=== PATIENT | male | born 1990 | race Caucasian/White ===

== ENCOUNTER 2020-09-25 14:46 | Emergency (ER) | payer SELFPAY ==
[2020-09-25 14:55] VITALS: BP 158/86
[2020-09-25] MEDS ORDERED: DIPH/PERTUSS(ACELL)/TETANUS VAC/PF 0.5 ML SYR (>=10YO) IM ONE ×2 (14:56→17:14)
[2020-09-25] MEDS ORDERED: CEPHALEXIN 500 MG CAPSULE PO ONE ×2 (14:56→17:15)
--- NOTE | 2020-09-25 14:56 | ER Document Report ---
ED Medical Screen (RME) - General Chief Complaint: Laceration Stated Complaint: FINGER LACERATION Time Seen by Provider: 09/25/20 14:52 Primary Care Provider: TRISTON WHITNEY [Primary Care Provider] - Follow up as needed Mode of Arrival: Ambulatory Information source: Patient Notes: 30-year-old male presented to ED for crush injury with laceration to the left index finger. He caught his finger between the brake caliber and the edge of the rim crushing his finger. He did rip his fingernail out and it is partially hanging on. He does have a minimal laceration. We will get x-rays and give him a tetanus immunization. He took 800 mg of ibuprofen about hours ago when the incident happened. He states he came to the emergency room because he cannot get the bleeding to stop. It is pretty much stopped now but the finger will need some work to get the nail back in the bed where it belongs. I have greeted and performed a rapid initial assessment of this patient. A comprehensive ED assessment and evaluation of the patient, analysis of test results and completion of medical decision making process will be conducted by an additional ED providers. Doctor's Discharge - Discharge Referrals: TRISTON WHITNEY [Primary Care Provider] - Follow up as needed
--- NOTE | 2020-09-25 15:17 | RADIOLOGY REPORT (SQ) ---
EXAM DESCRIPTION: FINGER LEFT IMAGES COMPLETED DATE/TIME: 09/25/2020 3:08 pm REASON FOR STUDY: Crush injury with laceration COMPARISON: None. NUMBER OF VIEWS: Three views. TECHNIQUE: AP, lateral, and oblique images acquired of the left second finger. LIMITATIONS: None. FINDINGS: MINERALIZATION: Normal. BONES: Avulsion type injury of the distal phalanx of the 2nd digit. SOFT TISSUES: Mild associated soft tissue irregularity. OTHER: No other significant finding. IMPRESSION: Avulsion type injury of the distal tuft of the 2nd digit. Associated soft tissue injury . TECHNICAL DOCUMENTATION: JOB ID: [id number] [employer]- All Rights Reserved Reading location - IP/workstation name: [email or web address]
--- NOTE | 2020-09-25 17:06 | ER Document Report ---
ED General - General Chief Complaint: Laceration Stated Complaint: FINGER LACERATION Time Seen by Provider: 09/25/20 14:52 Primary Care Provider: CHELO,TRISTON [NO LOCAL MD] - Follow up as needed Mode of Arrival: Ambulatory - [facility] Notes: 30-year-old male presents with injury to his left index finger. Patient states that he was changing a tire, he accidentally got his finger stuck in one of the holes on the rim, and the break crushed his hand. He had a lot of bleeding initially. He denies loss of sensation or motor function to his finger. Unsure of last tetanus. - Related Data Allergies/Adverse Reactions: No Known Allergies Allergy (Unverified 09/25/20 17:48) Past Medical History - General Information source: Patient - Social History Smoking Status: Unknown if Ever Smoked Family History: Reviewed & Not Pertinent Review of Systems - Review of Systems Constitutional: No symptoms reported EENT: No symptoms reported Cardiovascular: No symptoms reported Respiratory: No symptoms reported Gastrointestinal: No symptoms reported Genitourinary: No symptoms reported Male Genitourinary: No symptoms reported Musculoskeletal: Joint pain Skin: Other - Wound Hematologic/Lymphatic: No symptoms reported Neurological/Psychological: denies: Numbness Physical Exam - Vital signs Vitals: Temp Pulse Resp BP Pulse Ox 97.9 F 70 16 158/86 H 99 09/25/20 14:54 09/25/20 14:54 09/25/20 14:54 09/25/20 14:54 09/25/20 14:54 - General General appearance: Appears well, Alert In distress: None - HEENT Head: Normocephalic, Atraumatic Pupils: PERRL - Respiratory Respiratory status: No respiratory distress - Cardiovascular Normal capillary refill: Yes - Left index finger - Abdominal Inspection: No: Obese - Extremities Notes: There is a nail avulsion to the left index finger, able to see entirety of base of nail, associated superficial skin laceration. No injury to finger pad. Able to fully flex and extend at MCP, PIP and DIP of left index finger, able to make fist - Neurological Neuro grossly intact: Yes Notes: Motor and sensory intact to left index finger and left hand - Psychological Associated symptoms: Normal affect - Skin Skin Temperature: Warm Course - Re-evaluation Re-evalutation: 30-year-old male presents with injury to his left index finger, caught while changing a tire. There is a complete nail avulsion to the left index finger with associated superficial laceration. The finger is neurovascularly intact, able to fully flex and extend had all joints. Through the triage process he had an x-ray performed which shows a distal tuft fracture. Tetanus was ordered. Discussed with patient will reduce nailbed and repair wound. Dose of Keflex ordered. 09/25/20 18:10 Nailbed was repaired with 2 sutures and Dermabond. An aluminum splint was ordered. Discussed wound care with patient. Rx Keflex. Strict return precautions given, patient stable at time of discharge. - Vital Signs Vital signs: Temp Pulse Resp BP Pulse Ox 97.9 F 70 16 158/86 H 99 09/25/20 14:54 09/25/20 14:54 09/25/20 14:54 09/25/20 14:54 09/25/20 14:54 - Diagnostic Test Radiology reviewed: Image reviewed, Reports reviewed Procedures - Laceration/Wound Repair Left 2nd digit Wound length (cm): 2 Wound's Depth, Shape: Superficial, Nail-avulsed Laceration pre-procedure: Sterile PPE donned, Sterile drapes applied, Shur-Clens applied Anesthetic type: 1% Lidocaine Volume Anesthetic (mLs): 3 - Ring block Wound explored: Contaminated Irrigated w/ Saline (mLs): 1,000 Wound Repaired With: Sutures, Dermabond Suture Size/Type: 4:0, Prolene Number of Sutures: 2 Layer Closure?: No Post-procedure wound care: Sterile dressing applied, Splint applied Post-procedure NV exam normal: Yes Complications: No Discharge - Discharge Clinical Impression: Open fracture of tuft of distal phalanx of finger Disposition: HOME, SELF-CARE Instructions: Laceration Care ([facility]), Soap Cleansing ([facility]) Additional Instructions: Take antibiotics as prescribed. Wash with soap and water at least twice a day. Please keep covered and in a splint. Have sutures removed in 5 to 7 days. The nail will likely fall off. Please return to the emergency department for any concerning worsening symptoms. Prescriptions: Cephalexin Monohydrate [Keflex 500 mg Capsule] 500 mg PO Q6H 7 Days #28 capsule Referrals: LOCALMD,NO [NO LOCAL MD] - Follow up as needed
[2020-09-25] MEDS ORDERED: LIDOCAINE 1% INJ (10 MG/ML) 10 ML MDV INJ ONE (17:14)
== END 2020-09-25 18:52 | disposition home or self-care (01) ==
LOC: ER 14:46
DX: S62.631B Displaced fracture of distal phalanx of left index finger, initial encounter for open fracture (principal); W26.9XXA Contact with unspecified sharp object(s), initial encounter; Z23 Encounter for immunization
CPT/HCPCS: 90715; 96372; 99284